=== PATIENT | male | born 1995 | race Two or more races ===

== ENCOUNTER 2024-08-26 03:58 | Emergency (ER) | payer MEDICAID, OTHER ==
[~2024-08-26] VITALS: Ht 167.6 cm; Wt 75.7 kg
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
[2024-08-26 04:35] VITALS: BP 151/114; TEMP 97.7
[2024-08-26 04:36] VITALS: PULSE 84; RESP 18; O2SAT 96
== END 2024-08-26 04:46 ==
LOC: ER 03:58 → EEVIPCON 03:58 → ER 04:46
DX: F10.10 Alcohol abuse, uncomplicated (principal); V43.52XA Car driver injured in collision with other type car in traffic accident, initial encounter; Y93.I9 Activity, other involving external motion; Y92.488 Other paved roadways as the place of occurrence of the external cause; Y99.8 Other external cause status; Y90.9 Presence of alcohol in blood, level not specified